=== PATIENT | male | born 1960 | race Caucasian/White ===

== ENCOUNTER 2023-05-20 12:12 | Outpatient (RCR) | payer OTHER, SELFPAY | END 2023-05-20 23:59 | disposition home or self-care (01) | LOC: RST 12:12 | PROVIDERS: ATTENDING PHYSICIAN Physician Assistant Medical | DX: I63.50 Cerebral infarction due to unspecified occlusion or stenosis of unspecified cerebral artery (principal); I69.320 Aphasia following cerebral infarction | CPT/HCPCS: 92523 ==

== ENCOUNTER → 2023-06-24 16:30 | Outpatient (REF) | payer OTHER, SELFPAY | LOC: RAD 16:30 | PROVIDERS: ATTENDING PHYSICIAN Specialist; FAMILY PHYSICIAN Family Medicine | DX: I63.312 Cerebral infarction due to thrombosis of left middle cerebral artery (principal); Z13.5 Encounter for screening for eye and ear disorders | CPT/HCPCS: 70030; 70551 ==

== ENCOUNTER 2024-08-12 06:26 | Day surgery (SDC) | payer OTHER, SELFPAY | END 2024-08-12 10:16 | disposition home or self-care (01) | LOC: GI 06:26 | PROVIDERS: ATTENDING PHYSICIAN Internal Medicine; FAMILY PHYSICIAN Nurse Practitioner Adult Health | DX: Z12.11 Encounter for screening for malignant neoplasm of colon (principal); Z86.0101 Personal history of adenomatous and serrated colon polyps; K57.30 Diverticulosis of large intestine without perforation or abscess without bleeding; K64.9 Unspecified hemorrhoids; D12.1 Benign neoplasm of appendix; D12.0 Benign neoplasm of cecum; D12.2 Benign neoplasm of ascending colon; K63.5 Polyp of colon | CPT/HCPCS: 45385; 45380; 88305 ==